=== PATIENT | female | born 1990 | race Caucasian/White ===

== ENCOUNTER → 2020-10-16 09:09 | Outpatient (CLI) | payer OTHER, SELFPAY ==
[2020-10-16 10:13] LABS: Free T3 2.8 pg/mL (2.18-3.98); Prolactin 12.5 ng/mL; T4 Free Direct 1.24 ng/dL (0.76-1.46); Thyroid Stim Hormone (TSH) 3.69 uIU/mL (0.358-3.74)
[2020-10-19 12:08] LABS: Testosterone, % Free 3.14 % (0.50-2.80); Testosterone, Total 67 ng/dL (8-48); Thyroid Peroxidase AB 118 IU/mL (0-34)
[2020-10-19 13:04] LABS: Sex Hormone-binding Globulin 13.9 nmol/L (24.6-122.0); Thyroglobulin Antibody < 1.0 IU/mL (0.0-0.9)
== END ==
PROVIDERS: Visit Provider Obstetrics & Gynecology
DX: E03.8 Other specified hypothyroidism (principal); E22.1 Hyperprolactinemia; E28.2 Polycystic ovarian syndrome; E28.1 Androgen excess
CPT/HCPCS: 36415; 82533; 82627; 84146; 84270; 84402; 84403; 84439; 84443; 84481; 86376; 86800; 82626

== ENCOUNTER → 2020-10-18 09:52 | Outpatient (CLI) | payer OTHER, SELFPAY ==
[2020-10-21 20:07] LABS: Testosterone, % Free 3.33 % (0.50-2.80); Testosterone, Total 33 ng/dL (8-48)
[2020-10-24 17:04] LABS: Vitamin D,25 Hydroxy 40.3 ng/mL
== END ==
LOC: WOBLAB 09:53
PROVIDERS: Visit Provider Obstetrics & Gynecology
DX: E28.2 Polycystic ovarian syndrome (principal); E28.1 Androgen excess
CPT/HCPCS: 36415; 82306; 82533; 82627; 84402; 84403; 82626